=== PATIENT | male | born 1955 | race Caucasian/White ===

== ENCOUNTER 2018-07-17 21:37 | Inpatient (IN) | payer BC, OTHER ==
[~2018-07-17] VITALS: Ht 188 cm; Wt 132.7 kg
--- OUTSIDE RECORDS SUMMARY | 2018-07-17 21:40 | XMS REPORT ---
Author Author [facility] Address Unknown Phone Unavailable Care Team Providers Care Financial Institution Manager Name Role Phone Unavailable Unavailable Problems This patient has no known problems. Allergies, Adverse Reactions, Alerts This patient has no known allergies or adverse reactions. Medications This patient has no known medications. Encounters Start Date/Time End Date/Time Encounter Type Admission Type Attending [facility] Emergency Department Facility Care Department Encounter ID 2016-12-30 13:55:36 Inpatient [facility] [id number] 2016-12-30 09:45:07 Inpatient [facility] [id number] 2016-12-29 14:45:25 Inpatient [facility] [id number] 2016-12-29 02:35:28 Inpatient [facility] [id number] 2016-12-28 00:00:00 Inpatient [facility] [id number] 2016-12-28 00:00:00 Inpatient [facility] [id number] 2017-11-17 00:00:00 2017-11-17 00:00:00 Outpatient [facility] [id number] 2017-09-22 10:32:40 2017-09-22 10:32:40 Outpatient [facility] [id number] 2017-07-24 00:00:00 2017-07-24 00:00:00 Outpatient [facility] [id number] 2017-06-19 13:06:27 2017-06-19 13:06:27 Outpatient [facility] [id number] 2017-06-05 12:15:24 2017-06-05 12:15:24 Outpatient [facility] [id number] 2017-04-09 08:30:19 2017-04-09 08:30:19 Outpatient [facility] [id number] 2017-03-10 10:34:53 2017-03-10 10:34:53 Outpatient [facility] [id number] 2017-02-25 00:00:00 2017-02-25 00:00:00 Outpatient [facility] [id number] 2017-02-17 09:04:38 2017-02-17 09:04:38 Outpatient [facility] [id number] 2017-01-15 00:00:00 2017-01-15 00:00:00 Outpatient [facility] [id number] 2017-01-14 00:00:00 2017-01-14 00:00:00 Outpatient [facility] [id number] 2017-01-09 13:57:57 2017-01-09 13:57:57 Outpatient [facility] [id number] 2016-12-30 16:23:22 2016-12-30 00:00:00 Inpatient [facility] [id number] 2016-12-27 13:53:18 2016-12-27 13:53:18 Outpatient [facility] [id number] 2016-12-26 21:29:50 2016-12-26 21:29:50 Emergency [facility] [id number] 2016-12-26 20:51:31 2016-12-26 20:51:31 Inpatient [facility] [id number]
[2018-07-17] MEDS ORDERED: SODIUM CHLORIDE 0.9% 1000ML 1,000 ML IV STA (21:52)
[2018-07-17] MEDS ORDERED: CEFEPIME 1GM/NS 0.9% 50 ML 50 ML IV STA (21:52)
[2018-07-17] MEDS ORDERED: VANCOMYCIN 1GM/NS 250 ML 250 ML IV STA (21:52)
[2018-07-17 22:09] LABS: BASOPHILS % 0.3 % (0.0-1.0); EOSINOPHILS # (AUTO) 0.1 (0.0-0.4); EOSINOPHILS % 0.8 % (0.0-6.0); HEMATOCRIT 46.3 % (38.2-49.6); HEMOGLOBIN 15.1 g/dL (14.0-18.0); LYMPHOCYTES # (AUTO) 1.6 (1.0-3.2); MEAN CORPUSCULAR HEMOGLOBIN 29.6 pg (28-32); MEAN CORPUSCULAR HGB CONC 32.6 g/dL (31-35); MEAN CORPUSCULAR VOLUME 90.8 fL (81-99); MONOCYTES % 7.9 % (4.4-11.3); NEUTROPHILS # (AUTO) 10.4 (2.1-6.9); NEUTROPHILS % 78.6 % (38.7-80.0); PLATELET COUNT 227 x10e3/uL (140-360); RED CELL DISTRIBUTION WIDTH 14.6 % (11.7-14.4)
--- NOTE | 2018-07-17 22:15 | NUR ---
CONDOM CATH PLACED ON PATIENT PER PT REQUEST, STATES HE CANNOT VOID WITHOUT GETTING URINE ALL OVER HIMSELF AND HIS SCROTUM.
[2018-07-17 22:20] LABS: INR 2.4; PARTIAL THROMBOPLASTIN TIME 38.8 seconds (23.8-35.5); PROTHROMBIN TIME 26.9 seconds (11.9-14.5)
[2018-07-17 22:28] LABS: ALANINE AMINOTRANSFERASE 16 IU/L (0-55); ALBUMIN 3.3 g/dL (3.5-5.0); ALBUMIN/GLOBULIN RATIO 0.8 (0.8-2.0); ALKALINE PHOSPHATASE 83 IU/L (40-150); ANION GAP 14.1 mmol/L (8-16); BLOOD UREA NITROGEN 22 mg/dL (7-26); BUN/CREATININE RATIO 22 (6-25); CALCIUM 9.9 mg/dL (8.4-10.2); CARBON DIOXIDE 25 mmol/L (22-29); CHLORIDE 104 mmol/L (98-107); CREATINE KINASE 75 IU/L (30-200); CREATININE, SERUM 0.98 mg/dL (0.72-1.25); EST GLOMERULAR FILTRATION RATE > 60 ML/MIN (60-); GLUCOSE 108 mg/dL (74-118); POTASSIUM 4.1 mmol/L (3.5-5.1); SODIUM 139 mmol/L (136-145)
[2018-07-17 23:12] LABS: CLARITY,URINE CLEAR (CLEAR); COLOR,URINE YELLOW (YELLOW); LEUKOCYTE ESTERASE ,URINE TRACE (NEGATIVE); NITRITE,URINE POSITIVE (NEGATIVE); PROTEIN,URINE DIPSTICK NEGATIVE (NEGATIVE)
[2018-07-17 23:13] LABS: KETONES,URINE NEGATIVE (NEGATIVE)
[2018-07-17 23:14] LABS: BACTERIA,URINE MANY /HPF; BILIRUBIN,URINE NEGATIVE (NEGATIVE); EPITHELIAL CELLS,URINE FEW /LPF; RBC,URINE 0-5 /HPF (0-5); URINE UROBILINOGEN 0.2 mg/dL (0.2 - 1)
--- NOTE | 2018-07-17 23:55 | Diagnostic Imaging Report ---
CT Abdomen And Pelvis with Intravenous Contrast INDICATION: ^Scrotal abscess ^[id number] ^[id number] TECHNIQUE: Thin collimation axial images obtained from the diaphragm to the level of the pubic symphysis following the uneventful administration of 100 cc of low osmolar, nonionic intravenous contrast. Dose reduction techniques used: Automated exposure control, adjustment of the mAs and/or kVp according to patient size, standardized low-dose protocol, and/or iterative reconstruction technique. RADIATION DOSE: Total DLP: 1478.98 mGy*cm Estimated effective dose: (DLP x 0.015 x size factor) mSv CTDIvol has been reviewed. It is below the limits set by the Radiation Protocol Committee (RPC). COMPARISON: None. ABDOMEN FINDINGS: Lung Bases: Tangle of vessels in the right lower lobe superior to the posterior basal segment pulmonary artery measures 2.1 x 1.2 cm and is suggestive of an AV malformation. Liver: Normal attenuation. No evidence for mass. Gallbladder: Present and contains an intraluminal gallstone measuring 3.5 cm.. No biliary ductal dilatation. Pancreas: Diffuse fatty atrophy. No mass or ductal dilatation. Spleen: Normal in size. No evidence of mass.. Adrenal Glands: No evidence for mass. Kidneys: Right: Normal enhancement. No soft tissue mass. No hydronephrosis. Mild perinephric inflammation, nonspecific. Left: Normal enhancement. No soft tissue mass. No hydronephrosis. Mild perinephric inflammation, nonspecific. Lymph Nodes: No enlarged abdominal or retroperitoneal lymph nodes. Aorta: Normal in diameter with diffuse calcifications PELVIS FINDINGS: Bowel: Stomach: Normal. Small Bowel: Normal in caliber with normal wall thickness. Large Bowel: A few scattered diverticula. No associated inflammation. No large bowel dilatation or pericolonic inflammation. Appendix: Normal appendix. Bladder: Mild circumferential mural thickening. No ureteral dilatation. Prostate: Heavy calcifications in the transition zone. The prostate gland measures 4.4 cm in diameter.. Peritoneum/retroperitoneum: No free fluid or fluid collection. Bones: Degenerative changes of the spine. No compression deformities. No focal osseous lesions. There is partial sacralization of L5 on the left. Soft tissues: Diffuse scrotal edema. No evidence of air or enhancing fluid collection.. IMPRESSION: 1. No intraperitoneal abscess. 2. Diffuse scrotal cellulitis. No subcutaneous emphysema. No evidence of abscess by CT. 3. Potential AVM in the right lower lobe. This can be further characterized with CT of the chest on an outpatient basis. 4. Cholelithiasis. Diverticulosis coli. No evidence for bowel obstruction or inflammation. Signed by: Dr. Jacob Gómez MD on 07/17/2018 11:52 PM
[2018-07-18] VITALS (7 sets, daily range): BP systolic 108–121; BP diastolic 66–75
[2018-07-18] MEDS ORDERED: LISINOPRIL40 MG PO (01:16)
[2018-07-18] MEDS ORDERED: METOPROLOL TART50 MG PO (01:16)
[2018-07-18] MEDS ORDERED: ESIDRIX25 MG PO (01:16)
[2018-07-18] MEDS ORDERED: AMLODIPINE BESY10 MG PO (01:16)
[2018-07-18] MEDS ORDERED: ATORVASTATIN CA40 MG PO (01:16)
[2018-07-18] MEDS ORDERED: NIACIN1000 MG PO (01:16)
[2018-07-18] MEDS ORDERED: WARFARIN SODIUM5 MG PO (01:16)
[2018-07-18] MEDS ORDERED: CEFEPIME HCL 1 GM VIAL IV SCH ×2 (01:45→10:00)
[2018-07-18] MEDS ORDERED: VANCOMYCIN 1GM/NS 250 ML 250 ML IV SCH (01:45)
--- NOTE | 2018-07-18 02:13 | History and Physical ---
REASON FOR ADMISSION: Scrotal cellulitis abscess. HISTORY OF PRESENT ILLNESS: The patient is a 63-year-old gentleman, who 2 days prior to admission noticed the onset of redness and swelling of his testicle area. He then presented to the emergency room for his scrotal cellulitis with possible abscess. PAST MEDICAL HISTORY: Hypertension. MEDICATIONS: See MAY. ALLERGIES: SEE MAY. SOCIAL HISTORY: Nonsmoker, nondrinker. Lives at home with his . FAMILY HISTORY: Noncontributory. PHYSICAL EXAMINATION: VITAL SIGNS: Temperature 98.6, pulse 74, blood pressure 134/72, pulse ox 98% on room air. GENERAL: No apparent distress. NECK: Supple. CARDIOVASCULAR: Regular rate and rhythm. LUNGS: Clear to auscultation bilaterally. ABDOMEN: Has good bowel sounds. Soft and nontender. GENITOURINARY: The patient does have significant amount of cellulitis of the scrotal area with questionable pus in the abscess. EXTREMITIES: No clubbing or cyanosis. NEUROLOGIC: Nonfocal. ASSESSMENT: Scrotal abscess MD BETTIE Navarro/MACY /[id number]
--- NOTE | 2018-07-18 03:00 | NUR ---
received pt from ER to room 210, AAOx3, no resp distress, pt uses cpap at home to bring own cpap per pt, amb with stand by assist, able to verbalize needs, 20G IV to right AC patent and intact with NS @ 125, pt NPO, bed in lowest and locked position with call light in reach
--- NOTE | 2018-07-18 03:15 | NUR ---
condom cath dc'd per md instruction. transported to floor in stable condition. awake alert skin w/d resp nonlab. nad noted
[2018-07-18] MEDS: SODIUM CHLORIDE 0.9% 1000ML 1,000 ML IV SCH ×4 (03:34→22:25)
--- NOTE | 2018-07-18 07:00 | NUR ---
SHIFT REPORT RECEIVED FROM FLOOR BROKER RN AT BEDSIDE. PT DENIES NEEDS AT THIS TIME.
[2018-07-18] MEDS: CEFEPIME 1GM/NS 0.9% 50 ML 50 ML IV SCH ×2 (10:50→21:37)
[2018-07-18] MEDS ORDERED: IOPAMIDOL 370 MG/ML 200 ML INFUS..BTL INJ ONE (11:18)
[2018-07-18] MEDS ORDERED: SODIUM CHLORIDE 0.9% 50ML 50 ML ONE (11:18)
--- NOTE | 2018-07-18 13:35 | Consultation ---
DATE OF CONSULTATION: 07/18/2018 Urologic Consultation HISTORY OF PRESENT ILLNESS: Mr. Bermudez is a 63-year-old male, admitted to the hospital with inguinal scrotal cellulitis, which has been worsening for approximately one week. The patient denies any trauma, denies any bug bites, denies recent shaving. Does have remote history of dysuria. Denied gross hematuria. Nocturia 1-2 times per night. PAST MEDICAL HISTORY: Gallstones and hypertension. MEDICATIONS: Please see MAR. ALLERGIES: NKDA. SOCIAL HISTORY: Denied smoking or drinking. FAMILY HISTORY: Denied urologic stones or malignancies. REVIEW OF SYSTEMS: Noncontributory other than problems mentioned above for 12 organ systems. PHYSICAL EXAMINATION: GENERAL: Elderly male in no acute distress. VITAL SIGNS: Currently temperature 100.2, pulse 74, respirations 22, and blood pressure 121/75. EYES: Sclerae anicteric. NECK: Supple. BACK: Without costovertebral tenderness bilaterally. ABDOMEN: Soft. It is nontender. It is nondistended. There is no palpable mass. No palpable hernias. No palpable lymphadenopathy. : Normal male phallus with normal meatus. Scrotum is edematous, 3+. Trending down in the perineum with redness and some peeling of skin with skin changes. This area extends into the perineum and in a cord like structure woody edema. There is no fluctuant palpation area. There is no crepitus palpated. EXTREMITIES: Trace edema. NEURO: Moves all four extremities on command. PSYCH: Alert, mood appropriate. SKIN: Intact. Normal color. PERTINENT LABORATORY DATA: Hemoglobin 15, hematocrit 46, platelet count 227,000, and white cell count 13,100. Sodium 139, potassium 4.1, chloride 104, bicarb 25, BUN 22, creatinine 0.98, and glucose 108. CT scan revealing a 4.4 cm BPH, cholelithiasis. No crepitus, no air in the scrotum. IMPRESSION: 1. Scrotal cellulitis. 2. Scrotal edema. 3. Coagulopathy. 4. Benign prostatic hypertrophy. 5. Cholelithiasis. 6. Urinary tract infection. PLAN: Defer cholelithiasis per primary service. Coagulopathy, we will defer workup to Dr. Crooks. Scrotal edema,elevated Treat cellulitis with IV antibiotics. There is no fluctuant area to drain on the CT scan nor by palpation. In regards to the patient's BPH, he appears to be voiding well. We will follow and assist outpatient. For the patient's urinary tract infection, treat with antibiotics as well. Aki Beauchamp MD ES/MODL /[id number] cc: Wilmar Crooks MD MTDD
--- NOTE | 2018-07-18 19:00 | NUR ---
BEDSIDE REPORT GIVEN TO FELT CEMENTER RN
[2018-07-18] MEDS: VANCOMYCIN 1GM/NS 250 ML 250 ML IV SCH (22:25)
[2018-07-19] VITALS (8 sets, daily range): BP systolic 110–144; BP diastolic 68–82
[2018-07-19 06:21] LABS: BASOPHILS % 0.4 % (0.0-1.0); EOSINOPHILS # (AUTO) 0.3 (0.0-0.4); EOSINOPHILS % 2.8 % (0.0-6.0); HEMATOCRIT 39.9 % (38.2-49.6); HEMOGLOBIN 13.3 g/dL (14.0-18.0); LYMPHOCYTES # (AUTO) 1.6 (1.0-3.2); LYMPHOCYTES % 14.6 % (18.0-39.1); MEAN CORPUSCULAR HGB CONC 33.3 g/dL (31-35); MEAN CORPUSCULAR VOLUME 89.9 fL (81-99); MONOCYTES # (AUTO) 0.8 (0.2-0.8); MONOCYTES % 7.7 % (4.4-11.3); NEUTROPHILS # (AUTO) 8.1 (2.1-6.9); PLATELET COUNT 197 x10e3/uL (140-360); RED BLOOD COUNT 4.44 x10e6/uL (4.3-5.7); RED CELL DISTRIBUTION WIDTH 14.4 % (11.7-14.4)
[2018-07-19 06:49] LABS: ALANINE AMINOTRANSFERASE 12 IU/L (0-55); ALBUMIN 2.6 g/dL (3.5-5.0); ALBUMIN/GLOBULIN RATIO 0.7 (0.8-2.0); ALKALINE PHOSPHATASE 67 IU/L (40-150); ANION GAP 12.5 mmol/L (8-16); BLOOD UREA NITROGEN 9 mg/dL (7-26); BUN/CREATININE RATIO 13 (6-25); CALCIUM 8.6 mg/dL (8.4-10.2); CARBON DIOXIDE 22 mmol/L (22-29); CHLORIDE 108 mmol/L (98-107); CREATININE, SERUM 0.71 mg/dL (0.72-1.25); EST GLOMERULAR FILTRATION RATE > 60 ML/MIN (60-); GLUCOSE 95 mg/dL (74-118); POTASSIUM 3.5 mmol/L (3.5-5.1); SODIUM 139 mmol/L (136-145)
[2018-07-19] MEDS: LISINOPRIL 20 MG TAB PO SCH (08:41)
[2018-07-19] MEDS: WARFARIN SOD 5 MG TAB PO SCH (08:50)
[2018-07-19] MEDS: METOPROLOL TARTRATE 50 MG TAB PO SCH ×2 (08:50→17:10)
[2018-07-19] MEDS: AMLODIPINE BESYLATE 10 MG TAB PO SCH (08:50)
[2018-07-19] MEDS: HYDROCHLOROTHIAZIDE 25 MG TAB PO SCH (08:50)
[2018-07-19] MEDS: VANCOMYCIN 1GM/NS 250 ML 250 ML IV SCH (08:55)
--- NOTE | 2018-07-19 09:16 | NUR ---
patient up in bed, ambulated to rest room, denies any pain this time, scrotum elevated by using towels, not in any distress
[2018-07-19] MEDS: SODIUM CHLORIDE 0.9% 1000ML 1,000 ML IV SCH ×2 (10:01→22:50)
[2018-07-19] MEDS: CEFEPIME 1GM/NS 0.9% 50 ML 50 ML IV SCH ×2 (10:01→22:50)
--- NOTE | 2018-07-19 11:04 | NUR ---
CASE MANAGEMENT ASSESSMENT Polymerization Supervisor to bedside to discuss plan of care with patient/family. CM/SW role and care transitions discussed. Anticipated discharge plan discussed along with duration of care. CM/SW discussed patients right to make decisions in care. CM/SW work hours given. Patient lives: with Admit/Transfer: thru ED Hospital/ER visits since last admit: 0 POA/Emergency contact: Manuela Bermudez [phone] Current/Previous Home Health: none PCP/Follow-up Care: Dr. Scott Paula - PCP; advised pt to follow up with a MD within 5-7 days of discharge. pt verbalized understanding Current/Previous DME: CPAP Medications (referring to index hospitalization or the first time you were in the hospital) a. Were changes made in your medications when you were in the hospital on [date of index hospitalization]? n/a b. Did you understand the changes? n/a c. Were you able to obtain your new medications right away? n/a d. Were you able to take your medications like the doctor wanted you to? n/a e. Did the hospital give you an accurate, easy to understand list of medications when you left? n/a Scale of 1-10 how comfortable does patient feel with disease management in outpatient settin Other Services: none Employment Status: employed at [employer] Areas of Concerns: cellulitis of scrotum Referral Needs: none Education Needs: medical management IMM/CONNER given and signed (if applicable): n/a Goal for discharge: home and back to work CM/SW left business card at the bedside with contact information. Name and number was also written on the patients whiteboard. Patient verbalized understanding of discussion. CM will follow-up with ongoing discharge and transition of care needs.
--- NOTE | 2018-07-19 18:24 | NUR ---
patient resting in bed, denies any pain, no distress noted, call light in reach
--- NOTE | 2018-07-19 19:15 | NUR ---
Completed bedside report with morning nurse. Pt alert to name. Lying supine in bed HOB 45 degrees. Denies pain at this time. Bed low and locked. Call bolton within reach. Will continue to monitor.
[2018-07-19] MEDS: ATORVASTATIN 20 MG TAB PO SCH (20:50)
--- NOTE | 2018-07-19 23:36 | Consultation ---
DATE OF CONSULTATION: REASON FOR CONSULTATION: Scrotal cellulitis. HISTORY OF PRESENT ILLNESS: This patient, who is very pleasant 63-year-old white male, who denies any past medical history, comes in with redness and swelling of his scrotum. Denies history of trauma. The patient comes into the hospital where he was admitted, started on IV antibiotic. He is currently lying in bed, feeling comfortable. The patient who has history of hypertension. Denies any other medical problem. He denies any surgical problem. He does smoke and drink. He said he is trying to quit. REVIEW OF SYSTEMS: HEENT: Negative. PULMONARY: Negative. CARDIAC: Negative. : Negative except for the swelling. SKIN: There is no rash. JOINTS: Negative. All other systems within normal limits, reviewed 14 points with the patient, all negative. LABORATORY DATA: Reviewed. Chart reviewed. Blood cultures are negative. Urine cultures not done. His white count 13.90 on admission, came down to 10.92. Sodium 139, potassium 3.5, creatinine 0.7. MEDICATIONS: He is currently on cefepime and vancomycin, doses reviewed. Chart reviewed. He did have abdomen CAT scan, which showed no abscess, diffuse scrotal cellulitis, potential AVM of right lower lobe. PHYSICAL EXAMINATION: GENERAL: He is currently alert and oriented, does not seem to be in acute distress. VITAL SIGNS: Stable, currently afebrile. HEENT: He is normocephalic, not icteric. NECK: Supple. CHEST: Clear bilateral. HEART: S1, S2. No S3, S4, or murmur. ABDOMEN: Soft. Bowel sounds present. No tenderness. : On his scrotum, there is erythema and edema. IMPRESSION: 1. Scrotal cellulitis. Continue vancomycin. Continue with cefepime. We will see he is going to do clinically in the next day or two. 2. Hypertension. Discussed with the patient. We will follow vancomycin level. We will recheck CBC and recheck Chem panel. MD ABIGAIL Castellanos/MACY /[id number]
[2018-07-20] VITALS (9 sets, daily range): BP systolic 118–138; BP diastolic 58–83
[2018-07-20 06:39] LABS: BASOPHILS % 0.5 % (0.0-1.0); EOSINOPHILS # (AUTO) 0.3 (0.0-0.4); EOSINOPHILS % 3.4 % (0.0-6.0); HEMATOCRIT 40.6 % (38.2-49.6); HEMOGLOBIN 13.4 g/dL (14.0-18.0); LYMPHOCYTES # (AUTO) 1.4 (1.0-3.2); LYMPHOCYTES % 15.4 % (18.0-39.1); MEAN CORPUSCULAR HEMOGLOBIN 29.5 pg (28-32); MEAN CORPUSCULAR VOLUME 89.2 fL (81-99); MONOCYTES # (AUTO) 0.9 (0.2-0.8); MONOCYTES % 9.9 % (4.4-11.3); NEUTROPHILS # (AUTO) 6.2 (2.1-6.9); NEUTROPHILS % 70.5 % (38.7-80.0); PLATELET COUNT 183 x10e3/uL (140-360); RED BLOOD COUNT 4.55 x10e6/uL (4.3-5.7); RED CELL DISTRIBUTION WIDTH 14.3 % (11.7-14.4)
[2018-07-20 07:00] LABS: INR 1.96
[2018-07-20 07:11] LABS: ALANINE AMINOTRANSFERASE 13 IU/L (0-55); ALBUMIN 2.6 g/dL (3.5-5.0); ALBUMIN/GLOBULIN RATIO 0.7 (0.8-2.0); ALKALINE PHOSPHATASE 63 IU/L (40-150); ANION GAP 8.4 mmol/L (8-16); BLOOD UREA NITROGEN 10 mg/dL (7-26); BUN/CREATININE RATIO 14 (6-25); CALCIUM 8.9 mg/dL (8.4-10.2); CARBON DIOXIDE 24 mmol/L (22-29); CHLORIDE 107 mmol/L (98-107); EST GLOMERULAR FILTRATION RATE > 60 ML/MIN (60-); GLUCOSE 100 mg/dL (74-118); POTASSIUM 3.4 mmol/L (3.5-5.1); SODIUM 136 mmol/L (136-145)
--- NOTE | 2018-07-20 08:45 | NUR ---
patient walking in hallway, denies any pain, keep monitoring
[2018-07-20] MEDS: WARFARIN SOD 5 MG TAB PO SCH (08:59)
[2018-07-20] MEDS: METOPROLOL TARTRATE 50 MG TAB PO SCH ×2 (08:59→17:17)
[2018-07-20] MEDS: AMLODIPINE BESYLATE 10 MG TAB PO SCH (08:59)
[2018-07-20] MEDS: HYDROCHLOROTHIAZIDE 25 MG TAB PO SCH (08:59)
[2018-07-20] MEDS: LISINOPRIL 20 MG TAB PO SCH (09:00)
[2018-07-20] MEDS: CEFEPIME 1GM/NS 0.9% 50 ML 50 ML IV SCH ×2 (09:00→22:04)
[2018-07-20] MEDS: VANCOMYCIN 1GM/NS 250 ML 250 ML IV SCH (09:35)
--- NOTE | 2018-07-20 18:08 | NUR ---
patient up in bed, denies any pain, not in any distress, call light in reach, encouraged him to use towels to elevate scrotum
--- NOTE | 2018-07-20 19:25 | NUR ---
Bedside report completed with morning nurse. Pt alert to name. Lying supine in bed HOB 45 degrees. Denies pain at this time. Bed low and locked. Call bolton within reach. Will continue to monitor.
[2018-07-20] MEDS: ATORVASTATIN 20 MG TAB PO SCH (21:00)
[2018-07-21] VITALS (7 sets, daily range): BP systolic 104–129; BP diastolic 68–84
[2018-07-21] MEDS: WARFARIN SOD 5 MG TAB PO SCH (08:59)
[2018-07-21] MEDS: HYDROCHLOROTHIAZIDE 25 MG TAB PO SCH (09:00)
[2018-07-21] MEDS: METOPROLOL TARTRATE 50 MG TAB PO SCH ×2 (09:01→17:00)
[2018-07-21] MEDS: AMLODIPINE BESYLATE 10 MG TAB PO SCH (09:02)
[2018-07-21] MEDS: LISINOPRIL 20 MG TAB PO SCH (09:03)
[2018-07-21] MEDS: VANCOMYCIN 1GM/NS 250 ML 250 ML IV SCH ×2 (09:57→21:46)
[2018-07-21] MEDS: CEFEPIME 1GM/NS 0.9% 50 ML 50 ML IV SCH ×2 (10:00→21:21)
--- NOTE | 2018-07-21 15:58 | NUR ---
WOUND CARE CONSULT - INITIAL EVALUATION: Patient admitted from home to ER for swelling and redness of scrotum DX: Hypertension and Cellulitis of Scrotum. LABS: WBC8.25 Trending down from 10.92 HGB13.4 NEUT%70.[address]- Diffuse scrotal cellulitis, no abscess. PATIENT VISIT: Calm cooperative and in good spirits. AAOX 4 Presents with scrotal wound draining straw colored thick pus. Annular ulcer with 100% slough measuring 0.5x0.5 x 0.3cm. No pressure ulcers identified Khurram Score 20 Conservative PUP Active Ambulates self in hallway without supervision. IMPRESSION: Scrotal Ulcer - Cellulitis- - Cleanse wound with Hibliclens Soap and Normal Saline with 4x4 gauze and pat dry thoroughly Daily. - Apply Maxsorb Ag+ and Cover with ABD Pad and Secure with Mesh Underwear. RECOMMENDATION: Scrotal Ulcer - Cellulitis- - Cleanse wound with Hibiclens Soap and Normal Saline with 4x4 gauze and pat dry thoroughly Daily. - Apply Maxsorb Ag+ and Cover with ABD Pad and Secure with Mesh Underwear. Thank you for consulting with Wound Care. Addendum: 07/21/18 at 1603 by Hemant Naik RN Amended: Links added.
--- NOTE | 2018-07-21 19:01 | NUR ---
PT RESTING ON BED. BEDSIDE REPORT GIVEN TO THE ONCOMING NURSE.
[2018-07-21] MEDS: ATORVASTATIN 20 MG TAB PO SCH (21:21)
[2018-07-22] VITALS (8 sets, daily range): BP systolic 105–120; BP diastolic 56–80
--- NOTE | 2018-07-22 07:05 | NUR ---
RCD PT AT BED PT IS ALERT AND ORIENTED PT RESTING ON BED NO SIGNS OF ANY DISTRESS NOTED IV PATENT BED LOW AND LOCKED CALL LIGHT IN REACH
[2018-07-22] MEDS: VANCOMYCIN 1GM/NS 250 ML 250 ML IV SCH ×2 (09:00→20:32)
[2018-07-22] MEDS: HYDROCHLOROTHIAZIDE 25 MG TAB PO SCH (09:00)
[2018-07-22] MEDS: METOPROLOL TARTRATE 50 MG TAB PO SCH ×2 (09:00→16:49)
[2018-07-22] MEDS: WARFARIN SOD 5 MG TAB PO SCH (09:00)
[2018-07-22] MEDS: AMLODIPINE BESYLATE 10 MG TAB PO SCH (09:00)
[2018-07-22] MEDS: LISINOPRIL 20 MG TAB PO SCH (09:00)
--- NOTE | 2018-07-22 09:00 | NUR ---
A/C TO DR SMITH PT CAN GO HOME TALKED AL PA HE SAID THEY WAITING TO THE WOUND C/S REPORT FINAL
[2018-07-22] MEDS: CEFEPIME 1GM/NS 0.9% 50 ML 50 ML IV SCH ×2 (10:00→22:00)
--- NOTE | 2018-07-22 18:41 | NUR ---
PT RESTING ON BED. BEDSIDE REPORT GIVEN TO THE ONCOMING NURSE.
[2018-07-22] MEDS: ATORVASTATIN 20 MG TAB PO SCH (21:55)
[2018-07-23] VITALS (7 sets, daily range): BP systolic 97–134; BP diastolic 59–86
--- NOTE | 2018-07-23 07:00 | NUR ---
BEDSIDE SHIFT CHANGE REPORT FROM NIGHT RN. PT DENIES NEEDS AT THIS TIME.
[2018-07-23] MEDS: VANCOMYCIN 1GM/NS 250 ML 250 ML IV SCH ×2 (09:02→21:26)
[2018-07-23] MEDS: HYDROCHLOROTHIAZIDE 25 MG TAB PO SCH (09:02)
[2018-07-23] MEDS: METOPROLOL TARTRATE 50 MG TAB PO SCH ×2 (09:03→18:34)
[2018-07-23] MEDS: LISINOPRIL 20 MG TAB PO SCH (09:03)
[2018-07-23] MEDS: AMLODIPINE BESYLATE 10 MG TAB PO SCH (09:03)
[2018-07-23] MEDS: WARFARIN SOD 5 MG TAB PO SCH (09:04)
[2018-07-23] MEDS: CEFEPIME 1GM/NS 0.9% 50 ML 50 ML IV SCH (10:24)
[2018-07-23] MEDS: ATORVASTATIN 20 MG TAB PO SCH (21:27)
[2018-07-24] VITALS (7 sets, daily range): BP systolic 104–128; BP diastolic 65–74
[2018-07-24 05:34] LABS: INR 2.35; PROTHROMBIN TIME 26.4 seconds (11.9-14.5)
--- NOTE | 2018-07-24 07:15 | NUR ---
pt alert and ambulating in room at this time no distress noted, pt has no complaints at this time, will cont. to monitor.
--- NOTE | 2018-07-24 09:48 | Progress Note ---
DATE: SUBJECTIVE: The patient is a 63-year-old gentleman with a scrotal abscess and cellulitis, currently on antibiotic vancomycin. The patient also has Coumadin, metoprolol, lisinopril, hydrochlorothiazide, and atorvastatin on board. Asymptomatic. Wants to go home. No chest pains. No shortness of breath. Positive for bowel movements and no diarrhea. OBJECTIVE: VITAL SIGNS: Temperature is 96.8, pulse of 54, respirations of 19, blood pressure is 113/74, and pulse oximetry of 93%. HEENT: Normocephalic, atraumatic. Pupils are reactive to light and accommodation. CVS: S1 and S2, normal. Regular rate and rhythm. ABDOMEN: Nontender, nondistended. EXTREMITIES: No clubbing, no cyanosis, and no edema. SKIN: Scrotum with a small amount of induration and also right lower quadrant abdominal wall abscess. LABORATORY VALUES: Laboratory values from 23 are normal. White count is 8.75, hemoglobin of 13, hematocrit of 40. Sodium is 136, potassium is 3.4, glucose is 179. Coags so far have been normal. INR is 2.35. ASSESSMENT: 1. Scrotal abscess. 2. History of hypertension. 3. History of diabetes mellitus. 4. History of coagulopathy. 5. History of hyperlipidemia. PLAN: Plan is to continue vancomycin and cefepime, which is ongoing. The patient's troughs will be noted regularly. INR is therapeutic for his coagulopathy. Continue to be on antibiotics. The patient's disposition depending on urology and ID consultants. MD JOSEF Kline/MODL /[id number]
[2018-07-24] MEDS: VANCOMYCIN 1GM/NS 250 ML 250 ML IV SCH (09:58)
[2018-07-24] MEDS: WARFARIN SOD 5 MG TAB PO SCH (09:58)
[2018-07-24] MEDS: HYDROCHLOROTHIAZIDE 25 MG TAB PO SCH (09:58)
[2018-07-24] MEDS: LISINOPRIL 20 MG TAB PO SCH (09:59)
[2018-07-24] MEDS: AMLODIPINE BESYLATE 10 MG TAB PO SCH (09:59)
[2018-07-24] MEDS: METOPROLOL TARTRATE 50 MG TAB PO SCH ×2 (09:59→16:50)
--- NOTE | 2018-07-24 13:48 | NUR ---
Nutrition Screen Note RD Recommendation for Physician:Continue diet as ordered Plan of Care: RD following, monitoring for adequacy and tolerance Nutrition reason for involvement: LOS Primary Diagnose(s): Cellulitis of scrotum Ht:74 in Wt:292.5lbs BMI:37.6 kg/m2 IBW:190lbs RD Assessment:(07/24/18) Initial encounter with patient. Pt eating lunch at time of visit and Pt has been eating well. No N,V,D. No difficulty chewing or swallowing Current Diet: Cardiac diet Malnutrition Evaluation (07/24) The patient does not meet criteria for a specified degree of malnutrition at this time. Will re-evaluate at follow-up as appropriate. Diet Education Needs Assessment: Diet education not indicated. Diet Adequacy: Meeting calorie needs, Meeting protein needs, Meeting fluid needs. Tolerance: Tolerating PO. Nutrition Care Level: praful Sawant RD, LD, [facility]
--- NOTE | 2018-07-24 15:32 | NUR ---
call to Dr. santos office about discharge plan
--- NOTE | 2018-07-24 19:41 | NUR ---
report given to oncoming nurse, for cont. care.
--- NOTE | 2018-07-26 06:57 | Discharge Summary ---
DISCHARGE DIAGNOSIS: scrotal cellulitis. HISTORY OF PRESENT ILLNESS/HOSPITAL COURSE: See hospital chart for full details. The patient is a gentleman, who noticed acute onset of scrotal swelling and redness. He was noticed to have scrotal cellulitis. He was brought in antibiotics, which showed a significant improvement. At the time of discharge, the swelling and erythematous changes were essentially resolved and he was discharged once he was cleared by Infectious Disease and Surgery. He will continue with outpatient antibiotics and follow up with his primary care physician as well as Dr. Harkins in 1 or 2 weeks. Please see hospital chart for full details. MD BETTIE Navarro/MACY /[id number]
== END 2018-07-24 19:30 | disposition home or self-care (01) | DRG 728 ==
LOC: ER 21:49 → ERHOLD 07-18 01:54 → MED/SURG2 07-18 02:49
PROVIDERS: ADMIT Internal Medicine; ATTEND Internal Medicine
DX: N49.2 Inflammatory disorders of scrotum (principal); N30.00 Acute cystitis without hematuria; I10 Essential (primary) hypertension; N40.0 Benign prostatic hyperplasia without lower urinary tract symptoms; K80.20 Calculus of gallbladder without cholecystitis without obstruction
CPT/HCPCS: 36415; 74177; 80053; 80202; 81001; 82550; 82553; 82948; 83605; 84484; 85025; 85610; 85730; 86850; 86900; 87040; 87071; 87086; 87186; 87205; 97139; 99284; J0692; J3370; J7030; Q9967